=== PATIENT | female | born 1945 | race Caucasian/White ===

== ENCOUNTER 2017-04-12 11:13 | Day surgery (SDC) | payer OTHER ==
[2017-04-11 12:57] VITALS: BMI 32.3
[2017-04-12 12:16] VITALS: TEMP 97.8
[2017-04-12] MEDS ORDERED: PROPOFOL 20 ML ONE ×2 (12:23)
[2017-04-12 14:35] VITALS: BP 141/57; PULSE 64
--- NOTE | 2017-04-16 14:03 | PATH ---
Surgical Pathology Report Patient Name: KIRSTIN NAVARRETE [facility]. Rec. #: [id number] /Age/Gender: 1945 (Age: 71) / F Account: [id number] Location: U-ENDOSCOPY Taken: 04/12/2017 Received: 04/15/2017 Reported: 04/16/2017 Physicians: Umu Radford M.D. Specimen(s) Received A: BX HEPATIC FLEXURE B: BX RIGHT COLON POLYP C: BX ILEOCECAL VALVE POLYP Clinical History History of colon polyps AVM, colon polyps, rule out lipoma-ICV Final Diagnosis A. COLON, HEPATIC FLEXURE, POLYP, BIOPSY: TUBULAR ADENOMA. ADDITIONAL FRAGMENTS OF COLONIC MUCOSA WITH FOCAL HYPERPLASTIC CHANGE. B. COLON, RIGHT, POLYP, BIOPSY: FRAGMENTS OF TUBULAR ADENOMA. C. ILEOCECAL VALVE, POLYP, POLYPECTOMY: COLONIC MUCOSA WITH PROMINENT SUBMUCOSAL MATURE ADIPOSE TISSUE (SEE COMMENT). Comment: The findings are compatible with lipoma in proper endoscopic settings. Electronically Signed Brandt Higgins M.D. Gross Description A. Received in formalin, labeled "biopsy hepatic flexure polyp" are 2 torres, irregular portions of soft tissue averaging 0.3 cm in greatest dimension. The specimens are submitted in toto in one cassette. B. Received in formalin, labeled "biopsy right colon polyp" are 2 torres, irregular portions of soft tissue averaging 0.3 cm in greatest dimension. The specimens are submitted in toto in one cassette. C. Received in formalin labeled "ileocecal valve polyp rule out lipoma" is a 1.2 x 1.0 x 0.4 cm torres portion of soft tissue. The yellow fatty tissue at the base is inked green and the specimen is sectioned and entirely submitted in one cassette. DL/04/15/2017 saudi04/15/2017
== END 2017-04-12 14:34 | disposition home or self-care (01) ==
LOC: JASU-ENDO 11:13
PROVIDERS: ATTEND Internal Medicine Gastroenterology
PROC: 0DBK8ZX Excision of Ascending Colon, Via Natural or Artificial Opening Endoscopic, Diagnostic (ICD-10-PCS; 2017-04-12)
PROC: 0DBL8ZX Excision of Transverse Colon, Via Natural or Artificial Opening Endoscopic, Diagnostic (ICD-10-PCS; 2017-04-12)
PROC: 0DBC8ZX Excision of Ileocecal Valve, Via Natural or Artificial Opening Endoscopic, Diagnostic (ICD-10-PCS; principal; 2017-04-12 12:00)
DX: Z12.11 Encounter for screening for malignant neoplasm of colon (principal); Z86.010 Personal history of colon polyps; Z80.0 Family history of malignant neoplasm of digestive organs; D12.2 Benign neoplasm of ascending colon; D12.3 Benign neoplasm of transverse colon; K63.5 Polyp of colon; K57.30 Diverticulosis of large intestine without perforation or abscess without bleeding; K55.20 Angiodysplasia of colon without hemorrhage
CPT/HCPCS: 88305-TC

== ENCOUNTER 2021-03-31 05:50 | Day surgery (SDC) | payer OTHER ==
[2021-03-29 16:21] VITALS: BMI 32.3
[2021-03-31 10:29] VITALS: TEMP 97.1
[2021-03-31 11:23] VITALS: BP 165/53; PULSE 59
== END 2021-03-31 14:07 | disposition home or self-care (01) ==
LOC: JASU-ENDO 05:50
PROVIDERS: ATTEND Internal Medicine Gastroenterology
PROC: 0DBL8ZX Excision of Transverse Colon, Via Natural or Artificial Opening Endoscopic, Diagnostic (ICD-10-PCS; 2021-03-31)
PROC: 0DBH8ZX Excision of Cecum, Via Natural or Artificial Opening Endoscopic, Diagnostic (ICD-10-PCS; principal; 2021-03-31 09:54)
DX: Z12.11 Encounter for screening for malignant neoplasm of colon (principal); D12.0 Benign neoplasm of cecum; D12.3 Benign neoplasm of transverse colon; K55.20 Angiodysplasia of colon without hemorrhage; K57.30 Diverticulosis of large intestine without perforation or abscess without bleeding; Z86.010 Personal history of colon polyps; Z80.0 Family history of malignant neoplasm of digestive organs
CPT/HCPCS: 88305-TC